=== PATIENT | female | born 1960 | race Caucasian/White ===

== ENCOUNTER 2017-07-18 10:12 | Emergency (ER) | payer OTHER ==
[~2017-07-18] VITALS: Ht 160 cm; Wt 61.2 kg
[2017-07-18] MEDS ORDERED: METPRE4DP PO (10:59)
[2017-07-18] MEDS ORDERED: BENADRYL25 MG PO (10:59)
[2017-07-18] MEDS ORDERED: Triamcinolone A15 GM TOP (11:11)
== END 2017-07-18 11:17 | disposition home or self-care (01) ==
LOC: ER 10:12
DX: T78.40XA Allergy, unspecified, initial encounter (principal); Z87.891 Personal history of nicotine dependence
CPT/HCPCS: 99283; J1100; Q0163

== ENCOUNTER 2018-05-01 11:26 | Emergency (ER) | payer OTHER ==
[~2018-05-01] VITALS: Ht 160 cm; Wt 60.8 kg
[~2018-05-01 11:26] MED LIST: BENADRYL25 MG PO; METPRE4DP PO; Triamcinolone A15 GM TOP
[2018-05-01] MEDS ORDERED: HYDR1TAB94 PO (13:28)
== END 2018-05-01 14:08 | disposition home or self-care (01) ==
LOC: ER 11:26
DX: S59.201A Unspecified physeal fracture of lower end of radius, right arm, initial encounter for closed fracture (principal); F32.9 Major depressive disorder, single episode, unspecified; Z79.899 Other long term (current) drug therapy; Z87.891 Personal history of nicotine dependence; W01.0XXA Fall on same level from slipping, tripping and stumbling without subsequent striking against object, initial encounter
CPT/HCPCS: 29125; 73110; 99283-25

== ENCOUNTER 2018-07-20 12:55 | Emergency (ER) | payer OTHER ==
[~2018-07-20] VITALS: Ht 157.5 cm; Wt 64.0 kg
[~2018-07-20 12:55] MED LIST changes: +HYDR1TAB94 PO
[2018-07-20] MEDS ORDERED: Voltaren100 GM TOP (14:00)
== END 2018-07-20 14:20 | disposition home or self-care (01) ==
LOC: ER 12:55
DX: M75.31 Calcific tendinitis of right shoulder (principal); Z87.891 Personal history of nicotine dependence
CPT/HCPCS: 73030; 99283-25

== ENCOUNTER 2022-12-28 12:00 | Day surgery (SDC) | payer OTHER ==
[2022-12-28] VITALS (13 sets, daily range): BP systolic 110–144; BP diastolic 65–93
[~2022-12-28] VITALS: Ht 157.5 cm; Wt 64.4 kg
[~2022-12-28 12:00] MED LIST changes: +BACL10 PO; +ESTEST.62T; +IMITREX50 M1 PO; +MOBIC15 MG PO; +SERT50 PO; +Voltaren100 GM TOP; +ZOLOFT100 MG PO; +ZYRTEC10 M2 PO
[2022-12-28] MEDS ORDERED: Estrace Vagin42.5 GM VAG (12:07)
[2022-12-28] MEDS ORDERED: MEDR2.5 PO (12:08)
[2022-12-28] MEDS ORDERED: IBU600 MG PO (12:09)
[2022-12-28] MEDS ORDERED: BACLOFEN5 M1 PO (12:10)
--- NOTE | 2022-12-28 13:03 | NUR ---
REPORT GIVEN TO HEATHER Crow RN
--- NOTE | 2022-12-28 13:29 | NUR ---
PATIENT'S HEARING AIDS,GLASSES AND UPPER DENTURES BROUGHT TO PACU FOR SAFE KEEPING DURING SURGERY.
--- NOTE | 2022-12-28 17:39 | NUR ---
SHIFT SUMMARY S/P LAP HYSTER W/ BSO ARRIVED TO THE FLOOR AT 1700. LAP SITES X3 CLOSED WITH GLUE AND C/D/I. COLON CATH DRAINING CLEAR YELLOW URINE, STAT LOCK IN PLACE. MEDICATED FOR NAUSEA. IVF RUNNING @125. VSS. 2L NC SATS 94-95%. AOX4 AND CALL LIGHT IN REACH. HEARING AIDS IN PLACE. GLASSES ON AND DENTURES IN PLACE.
[2022-12-29] VITALS: BP 114/73
[2022-12-29 04:03] VITALS: BP 114/64
[2022-12-29 04:14] LABS: BASOPHILS ABSOLUTE AUTO 0.01 K/mm3 (0.00-0.23); BASOPHILS PERCENT AUTO 0 % (0-2); EOSINOPHILS PERCENT AUTO 0 % (0-6); Hematocrit 34.7 % (33.0-51.0); Hemoglobin 11.6 g/dL (11.5-16.0); IMMATURE GRAN ABSOLUTE AUTO 0.04 K/mm3 (0.00-0.10); IMMATURE GRAN PERCENT AUTO 0 % (0-1); LYMPHOCYTES ABSOLUTE AUTO 1.29 K/mm3 (0.84-5.20); LYMPHOCYTES PERCENT AUTO 10 % (21-46); MONOCYTES ABSOLUTE AUTO 0.72 K/mm3 (0.16-1.47); MONOCYTES PERCENT AUTO 5 % (4-13); Mean Corpuscular HGB 29.1 pg (26.0-34.0); Mean Corpuscular HGB Conc 33.4 g/dL (31.5-36.5); Mean Corpuscular Volume 87 fL (80-100); Mean Platelet Volume 11.1 fL (9.1-12.4); NEUTROPHILS ABSOLUTE AUTO 11.22 K/mm3 (1.96-9.15); NEUTROPHILS PERCENT AUTO 85 % (41-73); Platelet Count 298 K/mm3 (150-400); RDW Coefficient Variation 12.8 % (11.7-14.2); RDW Standard Deviation 40.5 fL (35.1-46.3); Red Blood Cell Count 3.98 M/mm3 (3.80-5.20); White Blood Cell Count 13.28 K/mm3 (4.00-11.30)
--- NOTE | 2022-12-29 05:39 | NUR ---
SHIFT SUMMARY PT POD 0 LAP HYSTERECTOMY, PT HAS DONE WELL OVERNIGHT. COLON REMOVED AROUND MIDNIGHT AND PT HAS VOIDED. POST OP VITALS STABLE. PT HAS AMBULATED IN THE ROOM WITHOUT DIFFICULTY. LAPS SITES WNL. PT TOLERATING PO INTAKE. VITALS STABLE. BED IN LOWEST POSITION, CALL LIGHT WITHIN REACH.
[2022-12-29 07:26] VITALS: BP 114/63
[2022-12-29] MEDS ORDERED: Percocet 5-3251 EACH PO (13:50)
[2022-12-29] MEDS ORDERED: IBUP800 PO (13:50)
[2022-12-29] MEDS ORDERED: PROM25 PO (13:51)
[2022-12-29] MEDS ORDERED: SIME80CH PO (13:52)
[2022-12-29 14:05] VITALS: BP 130/70
--- NOTE | 2022-12-29 14:12 | NUR ---
DISCHARGED REVIEWED DC INSTRUCTIONS W/PT; VERBALIZED UNDERSTANDING. DC'D IV, CATHETER INTACT. PT VOIDING, PAIN CONTROLLED WITH PO PAIN MEDS, PASSING FLATUS AND TOLERATING DIET. PT LEFT UNIT IN WC W/POSSESSIONS AND DC PAPERWORK IN HAND, ACCOMPANIED BY SON.
== END 2022-12-29 14:09 | disposition home or self-care (01) ==
LOC: ORSCMMR 12:00 → SURS 12:00 → ORSCMMR 12:01 → SURS 16:39 → ORSCMMR 12-29 14:09
PROVIDERS: Obstetrics & Gynecology
PROC: 0UT2FZZ Resection of Bilateral Ovaries, Via Natural or Artificial Opening With Percutaneous Endoscopic Assistance (ICD-10-PCS; principal; 2022-12-28 13:00)
PROC: 0UT9FZZ Resection of Uterus, Via Natural or Artificial Opening With Percutaneous Endoscopic Assistance (ICD-10-PCS; principal; 2022-12-28 13:00)
PROC: 0UT7FZZ Resection of Bilateral Fallopian Tubes, Via Natural or Artificial Opening With Percutaneous Endoscopic Assistance (ICD-10-PCS; principal; 2022-12-28 13:00)
DX: N95.0 Postmenopausal bleeding (principal); N80.03 Adenomyosis of the uterus; N93.0 Postcoital and contact bleeding; N94.6 Dysmenorrhea, unspecified; N94.10 Unspecified dyspareunia; N83.8 Other noninflammatory disorders of ovary, fallopian tube and broad ligament; D25.9 Leiomyoma of uterus, unspecified; Q50.5 Embryonic cyst of broad ligament; Z87.891 Personal history of nicotine dependence; Z79.899 Other long term (current) drug therapy
CPT/HCPCS: 36415; 85025; 88307; A9270; J0690; J1100; J1885; J2250; J2405; J2704; J3010; J7120